=== PATIENT | female | born 1975 | race Caucasian/White ===

== ENCOUNTER → 2017-10-30 | Outpatient (REF) ==
[~2017-10-30] MED LIST: ACEBUTOLOL HYD200 MG PO; ASPIR-LOW81 MG PO; DHA PO; FOLGARD PO; LOVENOX30 MG/0.1 IJ; PRENATAL VITAMIN; PRILOSEC 10MG10 MG PO; TOPROL XL50 MG PO; ZOFRAN4 MG PO; [UNRECOGNIZED DRUG - OTHER]
[2017-10-30 19:16] LABS: THYROID STIMULATING HORMONE 0.759 uIU/mL (0.465-4.680)
== END ==
LOC: ZLAB.WCH 18:08
PROVIDERS: Nurse Practitioner Family
DX: Z01.89 Encounter for other specified special examinations (principal)

== ENCOUNTER → 2017-11-23 | Outpatient (REF) ==
[2017-11-23 09:53] LABS: C-REACTIVE PROTEIN < 0.5 mg/dL (0.0-0.9)
== END ==
LOC: ZLAB.WCH 08:41
PROVIDERS: Nurse Practitioner Family
DX: Z01.89 Encounter for other specified special examinations (principal)

== ENCOUNTER → 2017-12-13 | Outpatient (REF) ==
[2017-12-13 18:18] LABS: IRON,SERUM 95 ug/dL (35-150)
[2017-12-13 18:28] LABS: TOTAL IRON BINDING CAPACITY 328 ug/dL (265-497)
== END ==
LOC: ZLAB.WCH 18:03
PROVIDERS: Nurse Practitioner Family
DX: Z01.89 Encounter for other specified special examinations (principal)